=== PATIENT | female | born 1950 | race Caucasian/White ===

== ENCOUNTER → 2017-05-25 | Outpatient (CLI) | payer MEDICARE ==
[~2017-05-25] MED LIST: ASPI-630 PO; ATOR40TA59 PO; CALC500T30 PO; CETI10TA22 PO; CHOL100013 PO; CYCL10TA2 PO; DIPH-121 PO; ESCITALOPRAM OX10 MG PO; FAMO40TA57 PO; FLUT9.9S NS; HYDR-2758 PO; LORA0.5T PO; LUTE20TA PO; MULT-460 PO; PHEN37.53 PO; POTA20TA4 PO; RAMI10CA PO; TRAM50TA PO; TRAZ100T12 PO; TRIA1TAB2 PO
--- NOTE | 2017-05-25 15:45 | EKG ---
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
[2017-05-25 16:07] LABS: BASO # 0.1 x10^3/uL (0.0-0.2); BASO % 1 % (0-3); EOS % 2 % (0-3); HEMATOCRIT 40.5 % (36.0-47.0); HEMOGLOBIN 13.7 g/dL (12.0-15.5); LYMPH # 1.9 x10^3/uL (1.0-4.8); LYMPH % 26 % (24-48); MEAN CORPUSCULAR HEMOGLOBIN 31 pg (25-35); MEAN CORPUSCULAR HGB CONC 34 g/dL (31-37); MEAN CORPUSCULAR VOLUME 93 fL (79-100); MONO % 8 % (0-9); NEUT % 64 % (31-73); PLATELET COUNT 221 x10^3/uL (140-400); RED BLOOD COUNT 4.36 x10^6/uL (3.50-5.40); RED CELL DISTRIBUTION WIDTH 13.4 % (11.5-14.5); WHITE BLOOD COUNT 7.6 x10^3/uL (4.0-11.0)
[2017-05-25 16:28] LABS: ALBUMIN 3.8 g/dL (3.4-5.0); ALBUMIN/GLOBULIN RATIO 0.9 (1.0-1.7); CALCIUM 9.2 mg/dL (8.5-10.1); GFR 55.6; POTASSIUM 3.7 mmol/L (3.5-5.1); TOTAL BILIRUBIN 0.9 mg/dL (0.2-1.0); TOTAL PROTEIN 7.9 g/dL (6.4-8.2)
== END | disposition home or self-care (01) ==
LOC: SURGPAT 13:41
PROVIDERS: ATTEND Neurological Surgery
DX: Z01.818 Encounter for other preprocedural examination (principal); I10 Essential (primary) hypertension
CPT/HCPCS: 80053; 85027; 87641; 93005

== ENCOUNTER 2017-06-12 07:22 | Observation (INO) | payer MEDICARE ==
[~2017-06-12] VITALS: Ht 154.9 cm; Wt 103.0 kg
[2017-06-12] VITALS (10 sets, daily range): BP systolic 84–109; BP diastolic 44–66
--- NOTE | 2017-06-12 00:03 | HP ---
ADMIT DATE: Jignesh Sabillon dictating for Dr. Tirso Callahan. This is a preop H and P. DATE OF SURGERY: 06/12/2017 HISTORY OF PRESENT ILLNESS: The patient is a pleasant 66-year-old woman who is having difficulty with low back pain and pain which radiates into her buttock and right posterior left thigh and leg. The problem has been present for about 1 year. It began when exercising. She rates her pain as 4/10. It is worse with activity and improved with pain medication and muscle relaxers. Standing up straight also seems to help her. She has had an epidural steroid injection, which gave her some relief until about 3 weeks when the pain became very severe. PAST MEDICAL HISTORY: Heart murmur, heart disease, hypertension, anxiety and RA. SURGICAL HISTORY: Rectocele and cystocele in 1977, bladder surgery and hysterectomy in 1999 ____ surgery. FAMILY HISTORY: Heart problems/disease and hypertension. 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 . Does not exercise. Drinks 1-2 alcoholic beverages per day. Denies substance abuse. Denies tobacco. Drinks coffee and tea daily. ALLERGIES: JACQUELINE. CURRENT MEDICATIONS: ____, Lorazepam, tramadol, escitalopram oxalate, triamterene, ramipril, Famotidine, aspirin, Zyrtec, atorvastatin, trazodone, multivitamin, calcium, Lutein, fish oil, [place] and muscle relaxers. REVIEW OF SYSTEMS: A 12-point review of systems was obtained and noncontributory, except for that mentioned above. PHYSICAL EXAMINATION: NEUROSURGERY EXAMINATION: GENERAL APPEARANCE: Alert and pleasant, in no acute distress. HEAD: Normocephalic and atraumatic. SKIN: Warm and dry. MUSCULOSKELETAL: Lumbar paraspinal muscle bulk is normal. Restricted range of motion of lumbar spine. [id number] tenderness of lower lumbar spine with palpation. Normal range of motion of lower extremities bilaterally. EXTREMITIES: No clubbing, cyanosis or edema. NEUROLOGIC: Alert and oriented x 3. Normal recent and remote memory. Strength 5/5 in bilateral lower extremities. Sensory was intact to light touch in lower extremities bilaterally, except for her right heel and the plantar surface of her right foot, which there was a decreased sensation to light touch. Reflexes were present and symmetric in bilateral lower extremities. Positive straight leg raising on the right. Negative straight leg raising on the left. Normal gait. IMAGING: Reviewed. I reviewed a lumbar MRI scan. There is a large recurrent disk herniation at L4-L5, which is associated with severe nerve root compression on the right and moderate central canal stenosis. There are also postoperative changes at this level on that side. ASSESSMENT: Intervertebral disk disorder with radiculopathy, lumbar region. PLAN: The patient has a right lumbar radiculopathy, which is significant. She failed to obtain lasting improvement with lumbar epidural steroid injections. My recommendation is that she undergo lumbar microsurgery. I spoke with her about the surgery and risks including nerve root injury and dural injury. She understands. She would like to go ahead. We will make the arrangements. TIRSO CALLAHAN MD DR: SYDNEY/britney JOB#: [id number] / [id number]
[~2017-06-12 07:22] MED LIST changes: +BACITRACIN 50,000 UNIT in IV NORMAL SALINE 1000ML BAG 1,000 ML IRR ONE; +BUPIVAC MPF-EPI 0.5%-1:200000 30 ML VIAL. ONE; +GELATIN SPONGE SIZE 100. ONE; +HYDROmorphone 2 MG/ML VIAL IV PRN; +KETOROLAC 60 MG/2 ML INJ FOR OR. ONE; +LIDOCAINE 1% 1 ML SYRINGE. ID PRN; +MORPHINE SULFATE 2 MG/ML DISP.SYRIN. IV PRN; +PROCHLORPERAZINE 10 MG/2 ML VIAL. IV PRN; +THROMBIN TOPICAL 20,000 UNIT SPRAY.SYRN KIT TP ONE; +fentaNYL PF VIAL 100 MCG/2 ML VIAL IV PRN
[2017-06-12] MEDS ORDERED: SUCCINYLCHOLINE 200 MG/10 ML VIAL. ONE (08:10)
[2017-06-12] MEDS ORDERED: LIDOCAINE 2% PF Vial for OR 5 ML VIAL. ONE (08:11)
[2017-06-12] MEDS ORDERED: PHENYLEPHRINE in 0.9% NACL PF 1 MG/10 ML DISP.SYRIN. IV ONE (08:11)
[2017-06-12] MEDS ORDERED: PROPOFOL 20 ML IV ONE ×2 (08:11→09:26)
[2017-06-12] MEDS ORDERED: ePHEDrine PF IN SALINE 50 MG/5 ML DISP.SYRIN IV ONE (08:11)
[2017-06-12] MEDS ORDERED: FAMOTIDINE 20 MG/2 ML VIAL ONE (08:11)
[2017-06-12] MEDS ORDERED: ONDANSETRON PF 4 MG/2 ML VIAL. ONE (08:11)
[2017-06-12] MEDS ORDERED: DEXAMETHASONE SOD PHOS 20 MG/5 ML VIAL. ONE (08:11)
[2017-06-12] MEDS ORDERED: fentaNYL PF VIAL 100 MCG/2 ML VIAL ONE ×2 (08:12→11:40)
[2017-06-12] MEDS: IV RINGERS,LACTATED 1000ML 1,000 ML IV SCH ×2 (08:12→12:24)
[2017-06-12] MEDS ORDERED: REMIFENTANIL 2 MG VIAL. IV ONE (08:12)
[2017-06-12] MEDS ORDERED: PROPOFOL 0 ML IV ONE (08:12)
[2017-06-12] MEDS ORDERED: GLYCOPYRROLATE 1 MG/5 ML VIAL. ONE ×2 (09:23→09:50)
[2017-06-12] MEDS ORDERED: PROPOFOL 50 ML IV ONE ×2 (09:26→10:39)
[2017-06-12] MEDS ORDERED: NEOSTIGMINE METHYLSULFATE 5 MG/5 ML SYRINGE. ONE (09:52)
[2017-06-12] MEDS ORDERED: DESFLURANE > 120 MINUTES IH ONE (10:10)
[2017-06-12] MEDS ORDERED: fentaNYL PF VIAL 100 MCG/2 ML VIAL IV PRN (11:45)
[2017-06-12] MEDS ORDERED: HYDROcodone/APAP 7.5/325MG 1 TAB TABLET PO PRN ×2 (11:45→12:00)
[2017-06-12] MEDS ORDERED: NALOXONE 0.4 MG/ML VIAL. IV PRN (11:45)
[2017-06-12] MEDS ORDERED: ACETAMINOPHEN 325 MG TABLET. PO PRN (11:45)
[2017-06-12] MEDS ORDERED: diphenhydrAMINE 50 MG/ML VIAL IV PRN (11:45)
[2017-06-12] MEDS ORDERED: ZOLPIDEM 5 MG TABLET. PO PRN (11:45)
[2017-06-12] MEDS ORDERED: METHOCARBAMOL 750 MG TABLET PO PRN (11:45)
[2017-06-12] MEDS ORDERED: MAG HYDROX/ALUMINUM HYD/SIMETH 30 ML ORAL.SUSP PO PRN (11:45)
[2017-06-12] MEDS ORDERED: 0.9 % SODIUM CHLORIDE 10 ML DISP.SYRIN. IV PRN (11:45)
[2017-06-12] MEDS ORDERED: diphenhydrAMINE HCL 25 MG CAPSULE PO PRN (11:45)
[2017-06-12] MEDS: fentaNYL PF VIAL 100 MCG/2 ML VIAL IV PRN ×3 (11:45→12:31)
--- NOTE | 2017-06-12 12:05 | OP ---
DATE OF SURGERY: 06/12/2017 PREOPERATIVE DIAGNOSIS: Recurrent herniated disc, L4-L5 right with severe right lumbar radiculopathy. POSTOPERATIVE DIAGNOSIS: Recurrent herniated disc, L4-L5 right with severe right lumbar radiculopathy. OPERATION PERFORMED: Hemilaminotomy and microdiscectomy for recurrent disc, L4-L5 right. The operation was done with EMG monitoring, fluoroscopy, microscopic dissection. SURGEON: Tirso Callahan M.D. RESEARCH CONTRACTS SUPERVISOR: Porter Stahl M.D. OPERATIVE INDICATIONS: The patient is a pleasant 66-year-old woman who developed intractable back and right leg pain which failed conservative measures in 2013. She underwent lumbar microsurgery for herniated disc at L4-L5 on the right and did well. On imaging studies done recently, there was a recurrent disc herniation at this location with significant nerve root compression. I recommended after she failed conservative measures, to undergo reoperation. She understood the risks of surgery including nerve root injury. She understood the technique of the operation and she wished to go ahead. DESCRIPTION OF PROCEDURE: Following general endotracheal anesthesia, the patient was positioned prone on the Avi table with the lumbar region prepped and draped in standard fashion. LUCIO hose and AV impulse boots were applied for DVT prophylaxis. A microscope was draped. Fluoroscopy was draped and brought into field. Monitoring was established. Ancef 2 grams was given less than 1 hour prior to initiation of surgery. Using fluoroscopic guidance, the inferior portion of her incision was reopened after infiltration of the skin with 0.5% Marcaine plus epinephrine. I dissected down through the skin and subcutaneous tissue. I then made an incision along the right side of the lumbodorsal fascia directly over the L4-L5 interspace. We worked through a very dense scar and exposed above and below the L4-L5 disc. I placed a 95 mm micro disc retractor and brought in the microscope and the remainder of surgery done with microscope using microscopic technique. I used curettes to strip away bone from around the previous hemilaminotomy and then used a high-speed air drill looking largely superiorly to shave bone and then ligament and expose the common dural sac and the exiting root. I gently retracted. The root medially, was lifted up significantly by large subligamentous disc bulge. I entered in the disc space and I performed a very generous microdiscectomy and as I worked, the region became very well decompressed. I spent considerable time working through this region and performing a very generous discectomy. I also worked laterally and that there was some more medial foraminal disc material and this was also removed. At the end of operation, the nerve was flat and free, easily retracted. There was no evidence of any recurrent disc fragments and I irrigated copiously with antibiotic solution and did use a bipolar intermittently for hemostasis. Monitoring was excellent throughout the operation. There was no significant firing at any time. I removed the retractors, obtained hemostasis in the muscle and I closed the wound in layers with absorbable suture and the skin was closed with 4-0 subcuticular stitch. The operation went very well and the patient was taken to recovery room in excellent condition. I was quite pleased with the surgery. TIRSO CALLAHAN MD DR: SYDNEY/britney JOB#: [id number] / [id number] MELISSA
[2017-06-12] MEDS: POTASSIUM CL 20MEQ D5-0.45NACL 1,000 ML IV SCH (13:53)
[2017-06-12] MEDS ORDERED: PHEN37.53 PO (18:02)
[2017-06-12] MEDS ORDERED: LORA1TAB PO (18:07)
[2017-06-12] MEDS: HYDROcodone/APAP 7.5/325MG 1 TAB TABLET PO PRN ×2 (18:32→23:23)
[2017-06-12] MEDS ORDERED: traMADol 50 MG TABLET PO PRN (22:15)
[2017-06-12] MEDS ORDERED: LORazepam 1 MG TABLET PO PRN (22:15)
[2017-06-12] MEDS ORDERED: CETIRIZINE HCL 10 MG TABLET. PO SCH (23:15)
[2017-06-12] MEDS ORDERED: ATORVASTATIN CALCIUM 40 MG TABLET. PO SCH (23:15)
[2017-06-13] MEDS: POTASSIUM CL 20MEQ D5-0.45NACL 1,000 ML IV SCH (01:00)
[2017-06-13 02:46] VITALS: BP 90/50
[2017-06-13] MEDS: HYDROcodone/APAP 7.5/325MG 1 TAB TABLET PO PRN ×2 (05:53→10:44)
[2017-06-13] MEDS ORDERED: ceFAZolin 2GM PREMIX 2 GM/50 ML BAG IV ONE (06:00)
[2017-06-13 07:00] VITALS: BP 120/49
--- NOTE | 2017-06-13 08:18 | DISCH ---
DISCHARGE INSTRUCTIONS Condition on Discharge Condition on Discharge: Stable Activity After Discharge Activity Instructions for Disc: Activity as tolerated, Avoid exertion Other activity instructions: no driving for a week Bathing Instructions: Shower-keep dressing dry Lifting Instructions after Dis: No heavy lifting, No pulling or pushing, Do not lift >10 pounds Diet after Discharge Additional Diet Restrictions: resume home diet Wound Incision Care Wound/Incision Care: Ice to area for comfort Other wound/incision instructi: may remove dressing in 48 hrs if dry then may shower- no soaking Contacting the after DC Call your doctor for: Concerns you may have Follow-Up Follow up with: Dr. Callahan's nurse in 2 weeks [phone] THALIA CALLAHAN MD Jun 13, 2017 08:18
[2017-06-13] MEDS ORDERED: DOCU-109 PO (08:37)
[2017-06-13] MEDS ORDERED: METH750T2 PO (08:37)
[2017-06-13] MEDS ORDERED: HYDR-2762 PO (08:37)
[2017-06-13 08:47] VITALS: BP 120/49
[2017-06-13] MEDS ORDERED: FLUTICASONE 50MCG/NASAL SPRAY 16GM BOTTLE. NS SCH (09:00)
[2017-06-13] MEDS ORDERED: POTASSIUM CHLORIDE 20 MEQ TABLET.ER. PO SCH (09:00)
[2017-06-13] MEDS ORDERED: CITALOPRAM 20 MG TABLET. PO SCH (09:00)
[2017-06-13] MEDS ORDERED: NON FORMULARY ITEM (Phentermine Hcl 37.5 MG) PO SCH (09:00)
[2017-06-13] MEDS ORDERED: LISINOPRIL 20 MG TABLET PO SCH (09:00)
[2017-06-13] MEDS ORDERED: ASPIRIN CHEWABLE 81 MG TABLET. PO SCH (09:00)
[2017-06-13] MEDS ORDERED: TRIAMTERENE/HCTZ 37.5/25MG TABLET. PO SCH (09:00)
[2017-06-13] MEDS ORDERED: FAMOTIDINE 20 MG TABLET. PO SCH (09:00)
[2017-06-13] MEDS ORDERED: traZODone 100 MG TABLET. PO SCH (21:00)
--- NOTE | 2017-06-16 15:04 | PATHOLOGY ---
PATHOLOGY REPORT * * * * * * * * FINAL DIAGNOSIS: Segments of fibrocartilaginous, fibroadipose, and skeletal muscle tissue and bone, lumbar disc and decompression: - Degenerative changes of fibrocartilaginous tissue. COMMENT: There is no evidence of an acute inflammatory process or malignancy. (JPM:mml; 06/16/2017) REPORT ELECTRONICALLY SIGNED BY: Salvatore Dudley M.D. DATE/TIME: 06/16/2017 15:02 * * * * * * * * GROSS PATHOLOGY: Received in formalin labeled "Elida Adkins, lumbar disc and decompression" are multiple segments of knowles, rubbery, and gritty tissue admixed with bone. The specimen measures 2.0 x 1.8 x 0.9 cm in aggregate dimensions. The tissue is submitted representatively in cassette A1, following decalcification. (JPM; 06/15/17) INITIAL CPT CODE(S): A; 33626, 25259 Professional services performed [place] [facility] [place] [address] Technical services performed by [facility] at [address] [place] [address] [address] [address]. SPECIMEN(S) RECEIVED: A.Lumbar disc and decompression CLINICAL HISTORY: Lumbar herniated disc with radiculopathy PATIENT: ELIDA ADKINS /AGE: 2 1950 (Age: 66) PATIENT #: [id number] ALT CASE #: SPECIMEN COLLECTION DATE: 06/12/2017 SPECIMEN RECEIVED DATE: 06/15/2017 [facility] - [address] [place] [address] - PHONE: [phone] * * * END OF REPORT * * *
== END 2017-06-13 10:50 | disposition home or self-care (01) ==
LOC: SURG 07:22 → EDUNIT# 08:30 → 4 NORTH 11:32
PROVIDERS: ADMIT Neurological Surgery; ATTEND Neurological Surgery
DX: M51.16 Intervertebral disc disorders with radiculopathy, lumbar region (principal); I10 Essential (primary) hypertension; F41.9 Anxiety disorder, unspecified; Z82.49 Family history of ischemic heart disease and other diseases of the circulatory system; Z90.710 Acquired absence of both cervix and uterus
CPT/HCPCS: 63030; 76000; 97162; 97165; 97530; G0378; G0379; G8978; G8979; G8980; G8987; G8988; G8989; J0330; J0690; J0780; J1100; J1885; J2370; J2405; J2704; J2710; J3010; J3490; J7030; S0028; J2001